=== PATIENT | female | born 1935 | race African-American/Black ===

== ENCOUNTER 2020-07-16 20:53 | Inpatient (IN) | payer BC, OTHER ==
--- NOTE | 2020-07-16 21:15 | PDOC ---
Attending Attestation - Resident Resident Name: MihirJefry - ED Attending Attestation I have performed the following: I have examined & evaluated the patient, The case was reviewed & discussed with the resident, I agree w/resident's findings & plan - HPI HPI: 07/17/20 06:02 Pt comes with facial droop. Here we see no droop. No other complaints - Physicial Exam PE: 07/17/20 06:02 07/17/20 06:02 Agree with resident exam 07/17/20 06:02 - Medical Decision Making 07/16/20 21:41 M.D. Please call [facility] [phone] ([phone]) with questions. Vicente Ponce MD Comments: Vicente Ponce MD wrote on Jul 16, 2020 at 09:22 PM: Referring Physician: PIETER BLISS Patient Name: EFRA MUHAMMAD THIS IS A PRELIMINARY REPORT FROM [facility] EXAM: CT head without contrast IMAGES: 279 DATE OF EXAM: 2020-07-16 21:04:51 REASON FOR EXAM: Stroke COMPARISON: None. FINDINGS: There is cerebral atrophy. Nonspecific bilateral basal ganglia calcifications, usually physiologic. Chronic microvascular ischemic changes are noted. No acute intracranial hemorrhage or acute infarction. The visualized aspect of the paranasal sinuses and mastoid air cells are remarkable for minimal mucosal thickening in the maxillary sinuses. No acute fracture. 07/17/20 00:12 Patient Name: EFRA MUHAMMAD THIS IS A PRELIMINARY REPORT FROM [facility] DATE OF SERVICE:2020-07-16 22:58:34 IMAGES: 530 EXAM: CT cervical spine without contrast HISTORY:FALL COMPARISON: None. FINDINGS: Moderate degenerative changes noted. Slight anterior subluxations at C4-C5 and C7-T1, likely due to degenerative changes. No acute cervical spine fracture or dislocation. Mild bilateral maxillary chronic sinus changes. 07/17 Pt will be admitted 06:02 Discharge - Discharge Information Problems reviewed: Yes Clinical Impression/Diagnosis: Slurred speech, Facial droop Hyperlipidemia Qualifiers: Hyperlipidemia type: unspecified Qualified Code(s): E78.5 - Hyperlipidemia, unspecified Hypertension Qualifiers: Hypertension type: unspecified Qualified Code(s): I10 - Essential (primary) hypertension Condition: Fair - Follow up/Referral - Patient Discharge Instructions - Post Discharge Activity
[2020-07-16] MEDS ORDERED: ASPIRIN 81 MG CHEWABLE TABLETS PO ONE (21:51)
[2020-07-16] MEDS ORDERED: ATORVASTATIN CA 80 MG TABLET (FP) PO ONE (21:52)
--- NOTE | 2020-07-16 21:58 | PDOC ---
History of Present Illness - General Chief Complaint: Facial Droop Stated Complaint: POSSIBLE STROKE Time Seen by Provider: 07/16/20 21:14 - History of Present Illness Initial Comments: 07/16/20 21:52 85yo F with PMH of HTN, GERD, dementia (AAOx3 at baseline), not ambulatory likely secondary to dementia, presents with right facial droop and slurred speech, noticed by daughter at 7pm. Unclear last known well, as son is reported to have noticed her abnormal speech this morning, and the daughter states patient sounded normal last night. Patient had one episode of NBNB emesis prior to arrival in ED. Daughter also reports that patient "passed out" and fell to the floor twice recently, once last month and once last weak. She was reportedly unconscious or minimally arousable for several minutes on the ground. No tongue biting or loss of urine. Denies neck pain. PMH: as above Meds: an ARB and PPI Allergies: none ROS GENERAL/CONSTITUTIONAL: No fever or chills. No weakness. HEAD, EYES, EARS, NOSE AND THROAT: No change in vision. No ear pain or discharge. No sore throat. CARDIOVASCULAR: No chest pain or shortness of breath RESPIRATORY: No cough, wheezing, or hemoptysis. GASTROINTESTINAL: No nausea, vomiting, diarrhea or constipation. GENITOURINARY: No dysuria, frequency, or change in urination. MUSCULOSKELETAL: chronic knee pain. No neck or back pain. SKIN: No rash NEUROLOGIC: No headache, vertigo, loss of consciousness, or change in strength/sensation. left facial droop and slurred speech ENDOCRINE: No increased thirst. No abnormal weight change HEMATOLOGIC/LYMPHATIC: No anemia, easy bleeding, or history of blood clots. ALLERGIC/IMMUNOLOGIC: No hives or skin allergy. PE GENERAL: Awake, alert, and fully oriented, in no acute distress HEAD: No signs of trauma, normocephalic, atraumatic. left facial droop, slurred speech as per daughter who is present EYES: PERRLA, EOMI, sclera anicteric, conjunctiva clear ENT: Auricles normal inspection, hearing grossly normal, nares patent, oropharynx clear without exudates. Moist mucosa NECK: Normal ROM, supple, no lymphadenopathy, JVD, or masses. no midline tenderness or obvious deformity LUNGS: No distress, speaks full sentences, clear to auscultation bilaterally HEART: Regular rate and rhythm, normal S1 and S2, no murmurs, rubs or gallops, peripheral pulses normal and equal bilaterally. ABDOMEN: Soft, nontender, normoactive bowel sounds. No guarding, no rebound. No masses EXTREMITIES : 2+ b/l LE pitting edema to the knees. pelvis stable. NEUROLOGICAL: Cranial nerves II through XII grossly intact. Normal speech, normal gait, no focal sensorimotor deficits SKIN: Warm, Dry, normal turgor, no rashes or lesions noted Vital Signs Temp Pulse Resp BP Pulse Ox 98.7 F 67 18 157/77 97 07/16/20 21:01 07/16/20 22:40 07/16/20 22:40 07/16/20 22:40 07/16/20 22:40 MDM: 85yo F with PMH of HTN, GERD, dementia (AAOx3 at baseline), not ambulatory likely secondary to dementia, presents with right facial droop and slurred speech, noticed by daughter at 7pm. Unclear last known well. DDx includes TIA vs. small vessel stroke vs. ICH. Also reports two episodes of falls with LOC. DDx includes syncope, seizure, ICH, cervical spine pathology. -CT head and c-spine -EKG, CXR, labs, admit -aspirin 243, atorvastatin 80, 1000ml NS 07/16/20 23:01 EKG: NSR, rate 61, normal axis and intervals, LVH, no ischemic changes CXR, CT head, and CT c-spine: negative for acute pathology labs: abnormal lipid panel Abnormal Lab Results 07/16/20 07/16/20 07/16/20 21:21 21:21 21:21 Eosinophils % 5.1 H Chloride 110 H Anion Gap 7 L Random Glucose 124 H Triglycerides 174 H Cholesterol 222 H Total LDL Cholesterol 129 H HDL Cholesterol 65 H Signed out to admitting attending who accepted the patient NIH Stroke Scale - Last Known Well Date/Time & Onset Date Last Known Well: 07/15/20 (unclear) Time Last Known Well: 20:00 (unclear) - Initial Evaluation Level of consciousness: Alert Ask patient the month and their age: Answers both correctly Ask patient to open & close eyes; make fist and let go: Obeys both correctly Best gaze (horizontal eye movement): Normal Visual field testing: No visual field loss Facial paresis (Show teeth/raise eyebrows/close eyes tight): Partial paralysis (total or near paralysis of lower face) Motor Function: Left Arm: Normal Motor Function: Right Arm: Normal (extends arm 90 (or 45) degrees for 10 seconds without drift Motor Function: Left Leg: Normal (extends leg 30 degrees for 5 seconds without drift) Motor Function: Right Leg: Normal (extends leg 30 degrees for 5 seconds without drift) Limb Ataxia: No ataxia Sensory(Use pinprick test arms,legs,trunk,face/side to side): Normal Best language (Describe picture, name items, read sentences): No Aphasia Dysarthria (read several words): Normal articulation Extinction and Inattention: No abnormality - Total Score NIH Stroke Scale Score: 2 Past History - Medical History Allergies/Adverse Reactions: Allergies Allergy/AdvReac Type Severity Reaction Status Date / Time No Known Allergies Allergy Verified 07/16/20 21:02 Home Medications: Ambulatory Orders Escitalopram Oxalate [Lexapro -] 5 mg PO DAILY 07/16/20 Olmesartan/Hydrochlorothiazide [Olmesartan-Hctz 40-12.5 mg Tab] 1 each PO DAILY 07/16/20 Omeprazole 40 mg PO DAILY 07/16/20 Anemia: No Asthma: No Cancer: No Cardiac Disorders: Yes CVA: No COPD: No CHF: No Dementia: No Diabetes: No GI Disorders: No Disorders: No HTN: Yes Hypercholesterolemia: No Liver Disease: No Seizures: No Thyroid Disease: No - Surgical History Abdominal Surgery: No Appendectomy: No Cardiac Surgery: No Cholecystectomy: No Lung Surgery: No Neurologic Surgery: No Orthopedic Surgery: No - Psycho-Social/Smoking History Smoking History: Never smoked Have you smoked in the past 12 months: No - Substance Abuse Hx (Audit-C & DAST Scrn) How often the patient has a drink containing alcohol: Never Score: In Men: 4 or > Positive; In Women: 3 or > Positive: 0 Screen Result (Pos requires Nsg. Audit-10AR): Negative In the last yr the pt used illegal drug/Rx for NonMed reason: No Score: Yes response is considered Positive: 0 Screen Result (Positive result requires Nsg. DAST-10): Negative *Physical Exam - Vital Signs Last Vital Signs Temp Pulse Resp BP Pulse Ox 98.7 F 76 18 173/73 H 97 07/16/20 21:01 07/16/20 21:01 07/16/20 21:01 07/16/20 21:01 07/16/20 21:01 ED Treatment Course - LABORATORY CBC & Chemistry Diagram: 07/16/20 21:21 07/16/20 21:21 Discharge - Discharge Information Problems reviewed: Yes Clinical Impression/Diagnosis: Slurred speech, Facial droop Hyperlipidemia Qualifiers: Hyperlipidemia type: unspecified Qualified Code(s): E78.5 - Hyperlipidemia, unspecified Hypertension Qualifiers: Hypertension type: unspecified Qualified Code(s): I10 - Essential (primary) hypertension Condition: Fair - Follow up/Referral - Patient Discharge Instructions - Post Discharge Activity
[2020-07-16 22:12] LABS: BASO % 0.5 % (0-2.0); EOS % 5.1 % (0-4.5); HEMOGLOBIN 12.6 GM/dL (10.7-15.3); LYMPH % 25.6 % (8-40); MCH 30.6 pg (25.7-33.7); MCHC 33.3 g/dl (32.0-36.0); MEAN PLT VOLUME 8.9 fl (7.5-11.1); MONO % 7.5 % (3.8-10.2); NEUT % 61.3 % (42.8-82.8); PLATELET COUNT 303 K/MM3 (134-434); RBC 4.13 M/mm3 (3.60-5.2); RDW 14.4 % (11.6-15.6); WHITE BLOOD COUNT 6.5 K/mm3 (4.0-10.0)
[2020-07-16 22:21] LABS: INR 1.03 (0.83-1.09); PROTHROMBIN TIME (PATIENT) 12.1 SEC (9.7-13.0)
[2020-07-16] MEDS: SODIUM CHLORIDE 1,000 ML IV SCH (22:22)
[2020-07-16 22:23] LABS: ACTIVATED PTT 26.1 SECONDS (25.2-36.5)
[2020-07-16] MEDS ORDERED: ATORVASTATIN CA 80 MG TABLET (FP) ONE (22:25)
[2020-07-16] MEDS ORDERED: ASPIRIN 81 MG CHEWABLE TABLETS ONE (22:25)
[2020-07-16 22:42] LABS: CHOLESTEROL 222 mg/dL (50-200); HDL CHOLESTEROL 65 mg/dL (40-60); LDL CHOLESTEROL (ONLY SJRH) 129 mg/dL (5-100); TRIGLYCERIDES 174 mg/dL (0-150)
[2020-07-16 22:43] LABS: ALBUMIN 3.4 g/dl (3.4-5.0); ALK PHOS 82 U/L (45-117); ANION GAP 7 MMOL/L (8-16); BILIRUBIN,TOTAL 0.5 mg/dL (0.2-1); BLOOD UREA NITROGEN 17.2 mg/dL (7-18); CALCIUM 8.8 mg/dL (8.5-10.1); CHLORIDE 110 mmol/L (98-107); CO2 25 mmol/L (21-32); CREATININE 1.2 mg/dL (0.55-1.3); GLUCOSE,RANDOM 124 mg/dL (74-106); SGOT/AST 20 U/L (15-37); SGPT/ALT 22 U/L (13-61); SODIUM 142 mmol/L (136-145); TOT PROT 7.1 g/dl (6.4-8.2)
--- NOTE | 2020-07-17 08:43 | CON.CARD ---
Consult Consult Specialty:: Cardiology - History of Present Illness History of Present Illness: 85yo F with PMH of HTN, GERD, dementia (AAOx3 at baseline), not ambulatory likely secondary to dementia, presents with right facial droop and slurred speech, noticed by daughter at 7pm. Unclear last known well, as son is reported to have noticed her abnormal speech this morning, and the daughter states patien t sounded normal last night. Patient had one episode of NBNB emesis prior to arrival in ED. Daughter also reports that patient "passed out" and fell to the floor twice recently, once last month and once last weak. She was reportedly unconscious or minimally arousable for several minutes on the ground. No tongue biting or loss of urine. Denies neck pain. - History Source History Provided By: Patient, Medical Record - Alcohol/Substance Use Hx Alcohol Use: No - Smoking History Smoking history: Never smoked Have you smoked in the past 12 months: No Home Medications - Allergies Allergies/Adverse Reactions: Allergies Allergy/AdvReac Type Severity Reaction Status Date / Time No Known Allergies Allergy Verified 07/16/20 21:02 - Home Medications Home Medications: Ambulatory Orders Escitalopram Oxalate [Lexapro -] 5 mg PO DAILY 07/16/20 Olmesartan/Hydrochlorothiazide [Olmesartan-Hctz 40-12.5 mg Tab] 1 each PO DAILY 07/16/20 Omeprazole 40 mg PO DAILY 07/16/20 Review of Systems - Review of Systems Constitutional: reports: No Symptoms Eyes: reports: No Symptoms HENT: reports: No Symptoms Neck: reports: No Symptoms Cardiovascular: reports: No Symptoms Gastrointestinal: reports: No Symptoms Genitourinary: reports: No Symptoms Breasts: reports: No Symptoms Reported Musculoskeletal: reports: No Symptoms Integumentary: reports: No Symptoms Neurological: reports: Change in Speech Endocrine: reports: No Symptoms Hematology/Lymphatic: reports: No Symptoms Psychiatric: reports: No Symptoms Vital Signs: Vital Signs Temperature 98.5 F 07/17/20 02:02 Pulse Rate 56 L 07/17/20 06:52 Respiratory Rate 18 07/17/20 06:52 Blood Pressure 181/74 H 07/17/20 06:52 O2 Sat by Pulse Oximetry (%) 97 07/17/20 06:52 Constitutional: Yes: Well Nourished, No Distress, Calm Eyes: Yes: WNL, Conjunctiva Clear, EOM Intact HENT: Yes: WNL, Atraumatic, Normocephalic Neck: Yes: WNL, Supple, Trachea Midline Respiratory: Yes: WNL, Regular, CTA Bilaterally Gastrointestinal: Yes: WNL, Normal Bowel Sounds Renal/: Yes: WNL Cardiovascular: Yes: WNL, Regular Rate and Rhythm Musculoskeletal: Yes: WNL Extremities: Yes: WNL Integumentary: Yes: WNL - Other Data Labs, Other Data: CBC, BMP 07/16/20 21:21 07/16/20 21:21 INR, PTT INR 1.03 (0.83-1.09) 07/16/20 21:21 Troponin, BNP 07/16/20 21:21 Troponin I < 0.02 Troponin, BNP 07/16/20 21:21 Troponin I < 0.02 Imaging - Results Chest X-ray: Image Reviewed (no i/e) EKG: Image Reviewed (nsr lvh) Problem List - Problems (1) Facial droop Code(s): R29.810 - FACIAL WEAKNESS (2) Hyperlipidemia Code(s): E78.5 - HYPERLIPIDEMIA, UNSPECIFIED Qualifiers: Hyperlipidemia type: unspecified Qualified Code(s): E78.5 - Hyperlipidemia, unspecified (3) Hypertension Code(s): I10 - ESSENTIAL (PRIMARY) HYPERTENSION Qualifiers: Hypertension type: unspecified Qualified Code(s): I10 - Essential (primary) hypertension (4) Slurred speech Code(s): R47.81 - SLURRED SPEECH Assessment/Plan 85yo F with PMH of HTN, GERD, dementia (AAOx3 at baseline), not ambulatory likely secondary to dementia, presents with right facial droop and slurred speech, noticed by daughter at 7pm. TIA Plan; Neurology eval serial EKGs c.duplex ECHO DVT PLX
[2020-07-17] MEDS ORDERED: ASPIRIN COATED 81 MG TABLET.EC ONE (09:46)
[2020-07-17] MEDS ORDERED: PANTOPRAZOLE 40 MG TABLET ONE (09:47)
[2020-07-17] MEDS ORDERED: ESCITALOPRAM OXALATE 10 MG TABLET ONE (09:47)
[2020-07-17] MEDS ORDERED: amLODIPine BESYLATE 5 MG TABLET (FP) ONE (09:47)
[2020-07-17] MEDS ORDERED: HEPARIN NA (PORCINE) 5,000 UNITS/ML 1ML VIAL ONE (09:48)
[2020-07-17] MEDS: ASPIRIN COATED 81 MG TABLET.EC PO SCH (10:32)
[2020-07-17] MEDS: ESCITALOPRAM OXALATE 10 MG TABLET PO SCH (10:32)
[2020-07-17] MEDS: PANTOPRAZOLE 40 MG TABLET PO SCH (10:32)
[2020-07-17] MEDS: HEPARIN NA (PORCINE) 5,000 UNITS/ML 1ML VIAL SQ SCH ×2 (10:32→22:57)
[2020-07-17] MEDS: amLODIPine BESYLATE 5 MG TABLET (FP) PO SCH (10:32)
--- NOTE | 2020-07-17 15:08 | EKG ---
Test Reason : Blood Pressure : / mmHG Vent. Rate : 061 BPM Atrial Rate : 061 BPM P-R Int : 158 ms QRS Dur : 082 ms QT Int : 420 ms P-R-T Axes : 025 021 002 degrees QTc Int : 422 ms NORMAL SINUS RHYTHM VOLTAGE CRITERIA FOR LEFT VENTRICULAR HYPERTROPHY ABNORMAL ECG NO PREVIOUS ECGS AVAILABLE Confirmed by MD Abhay, Adithya ([id number]) on 07/17/2020 3:08:08 PM Referred By: Confirmed By:Adithya Blank MD
--- NOTE | 2020-07-17 21:50 | HP ---
Admitting History and Physical - Smoking History Smoking history: Never smoked Have you smoked in the past 12 months: No - Alcohol/Substance Use Hx Alcohol Use: No Home Medications - Allergies Allergies/Adverse Reactions: Allergies Allergy/AdvReac Type Severity Reaction Status Date / Time No Known Allergies Allergy Verified 07/16/20 21:02 - Home Medications Home Medications: Ambulatory Orders Escitalopram Oxalate [Lexapro -] 5 mg PO DAILY 07/16/20 Olmesartan/Hydrochlorothiazide [Olmesartan-Hctz 40-12.5 mg Tab] 1 each PO DAILY 07/16/20 Omeprazole 40 mg PO DAILY 07/16/20 Physical Examination Vital Signs: Vital Signs Temperature 98.5 F 07/17/20 02:02 Pulse Rate 67 07/17/20 18:00 Respiratory Rate 17 07/17/20 18:00 Blood Pressure 169/62 07/17/20 18:00 O2 Sat by Pulse Oximetry (%) 96 07/17/20 18:00 Labs: CBC, BMP 07/16/20 21:21 07/16/20 21:21 Problem List - Problems (1) CVA (cerebral vascular accident) Code(s): I63.9 - CEREBRAL INFARCTION, UNSPECIFIED (2) Dementia Code(s): F03.90 - UNSPECIFIED DEMENTIA WITHOUT BEHAVIORAL DISTURBANCE (3) Hyperlipidemia Code(s): E78.5 - HYPERLIPIDEMIA, UNSPECIFIED Qualifiers: Hyperlipidemia type: unspecified Qualified Code(s): E78.5 - Hyperlipidemia, unspecified (4) Hypertension Code(s): I10 - ESSENTIAL (PRIMARY) HYPERTENSION Qualifiers: Hypertension type: unspecified Qualified Code(s): I10 - Essential (primary) hypertension
[2020-07-17] MEDS: SODIUM CHLORIDE 1,000 ML IV SCH (22:37)
[2020-07-17] MEDS: ATORVASTATIN CA 40 MG TABLET (FP) PO SCH (22:58)
[2020-07-17] MEDS: ACETAMINOPHEN 325 MG TABLET (FP) PO PRN (23:08)
[2020-07-18 05:35] VITALS: BMI 31.8
--- NOTE | 2020-07-18 09:13 | PN ---
Progress Note, Physician History of Present Illness: 85yo F with PMH of HTN, GERD, dementia (AAOx3 at baseline), not ambulatory likely secondary to dementia, presents with right facial droop and slurred speech, noticed by daughter at 7pm. Unclear last known well, as son is reported to have noticed her abnormal speech this morning, and the daughter states patient sounded normal last night. Patient had one episode of NBNB emesis prior to arrival in ED. Daughter also reports that patient "passed out" and fell to the floor twice recently, once last month and once last weak. She was reportedly unconscious or minimally arousable for several minutes on the ground. No tongue biting or loss of urine. Denies neck pain. - Current Medication List Current Medications: Active Medications Acetaminophen (Tylenol -) 650 mg PO Q6H PRN PRN Reason: PAIN LEVEL 1-6 Last Admin: 07/17/20 23:08 Dose: 650 mg Documented by: Amlodipine Besylate (Norvasc -) 5 mg PO DAILY [facility] Last Admin: 07/17/20 10:32 Dose: 5 mg Documented by: Aspirin (Ecotrin -) 81 mg PO DAILY [facility] Last Admin: 07/17/20 10:32 Dose: 81 mg Documented by: Atorvastatin Calcium (Lipitor -) 40 mg PO HS [facility] Last Admin: 07/17/20 22:58 Dose: 40 mg Documented by: Escitalopram Oxalate (Lexapro -) 5 mg PO DAILY [facility] Last Admin: 07/17/20 10:32 Dose: 5 mg Documented by: Heparin Sodium (Porcine) (Heparin -) 5,000 unit SQ BID [facility] Last Admin: 07/17/20 22:57 Dose: 5,000 unit Documented by: Pantoprazole Sodium (Protonix -) 40 mg PO DAILY [facility] Last Admin: 07/17/20 10:32 Dose: 40 mg Documented by: - Objective Vital Signs: Vital Signs Temperature 97.9 F 07/18/20 06:00 Pulse Rate 60 07/18/20 06:00 Respiratory Rate 18 07/18/20 06:00 Blood Pressure 154/76 07/18/20 06:00 O2 Sat by Pulse Oximetry (%) 97 07/18/20 06:00 Eyes: Yes: WNL, Conjunctiva Clear, EOM Intact HENT: Yes: WNL, Atraumatic, Normocephalic Neck: Yes: WNL, Supple, Trachea Midline Cardiovascular: Yes: WNL, Regular Rate and Rhythm Respiratory: Yes: WNL, Regular, CTA Bilaterally Gastrointestinal: Yes: WNL, Normal Bowel Sounds Genitourinary: Yes: WNL Musculoskeletal: Yes: WNL Extremities: Yes: WNL Edema: No Integumentary: Yes: WNL Neurological: Yes: WNL, Alert, Oriented ...Motor Strength: WNL Psychiatric: Yes: WNL Labs: CBC, BMP 07/16/20 21:21 07/16/20 21:21 INR, PTT INR 1.03 (0.83-1.09) 07/16/20 21:21 Problem List - Problems (1) Facial droop Code(s): R29.810 - FACIAL WEAKNESS (2) Hyperlipidemia Code(s): E78.5 - HYPERLIPIDEMIA, UNSPECIFIED Qualifiers: Hyperlipidemia type: unspecified Qualified Code(s): E78.5 - Hyperlipidemia, unspecified (3) Hypertension Code(s): I10 - ESSENTIAL (PRIMARY) HYPERTENSION Qualifiers: Hypertension type: unspecified Qualified Code(s): I10 - Essential (primary) hypertension (4) Slurred speech Code(s): R47.81 - SLURRED SPEECH Assessment/Plan 85yo F with PMH of HTN, GERD, dementia (AAOx3 at baseline), not ambulatory likely secondary to dementia, presents with right facial droop and slurred speech, noticed by daughter at 7pm. TIA Plan; Neurology eval serial EKGs c.duplex ECHO DVT PLX
[2020-07-18] MEDS: ESCITALOPRAM OXALATE 10 MG TABLET PO SCH (10:41)
[2020-07-18] MEDS: PANTOPRAZOLE 40 MG TABLET PO SCH (10:44)
[2020-07-18] MEDS: ASPIRIN COATED 81 MG TABLET.EC PO SCH (10:45)
[2020-07-18] MEDS: amLODIPine BESYLATE 5 MG TABLET (FP) PO SCH (10:45)
[2020-07-18] MEDS: HEPARIN NA (PORCINE) 5,000 UNITS/ML 1ML VIAL SQ SCH ×2 (10:45→21:28)
[2020-07-18 12:00] LABS: BASO % 0.8 % (0-2.0); EOS % 5.7 % (0-4.5); HEMATOCRIT 39.2 % (32.4-45.2); HEMOGLOBIN 13.4 GM/dL (10.7-15.3); LYMPH % 29.4 % (8-40); MCH 31.5 pg (25.7-33.7); MCHC 34.2 g/dl (32.0-36.0); MEAN CELL VOLUME 92.1 fl (80-96); MEAN PLT VOLUME 8.6 fl (7.5-11.1); MONO % 7.4 % (3.8-10.2); NEUT % 56.7 % (42.8-82.8); PLATELET COUNT 286 K/MM3 (134-434); RBC 4.25 M/mm3 (3.60-5.2); WHITE BLOOD COUNT 4.5 K/mm3 (4.0-10.0)
[2020-07-18 12:33] LABS: ALBUMIN 3.4 g/dl (3.4-5.0); BILIRUBIN,TOTAL 0.7 mg/dL (0.2-1); BLOOD UREA NITROGEN 12.7 mg/dL (7-18); POTASSIUM 3.7 mmol/L (3.5-5.1)
--- NOTE | 2020-07-18 19:40 | PN ---
Progress Note, Physician - Current Medication List Current Medications: Active Medications Acetaminophen (Tylenol -) 650 mg PO Q6H PRN PRN Reason: PAIN LEVEL 1-6 Last Admin: 07/17/20 23:08 Dose: 650 mg Documented by: Amlodipine Besylate (Norvasc -) 5 mg PO DAILY [facility] Last Admin: 07/18/20 10:45 Dose: 5 mg Documented by: Aspirin (Ecotrin -) 81 mg PO DAILY [facility] Last Admin: 07/18/20 10:45 Dose: 81 mg Documented by: Atorvastatin Calcium (Lipitor -) 40 mg PO HS [facility] Last Admin: 07/17/20 22:58 Dose: 40 mg Documented by: Escitalopram Oxalate (Lexapro -) 5 mg PO DAILY [facility] Last Admin: 07/18/20 10:41 Dose: 5 mg Documented by: Heparin Sodium (Porcine) (Heparin -) 5,000 unit SQ BID [facility] Last Admin: 07/18/20 10:45 Dose: 5,000 unit Documented by: Pantoprazole Sodium (Protonix -) 40 mg PO DAILY [facility] Last Admin: 07/18/20 10:44 Dose: 40 mg Documented by: - Objective Vital Signs: Vital Signs Temperature 98.3 F 07/18/20 14:15 Pulse Rate 66 07/18/20 14:15 Respiratory Rate 20 07/18/20 14:15 Blood Pressure 149/77 07/18/20 14:15 O2 Sat by Pulse Oximetry (%) 98 07/18/20 14:15 Constitutional: Yes: Calm HENT: Yes: Atraumatic Neck: Yes: Supple Cardiovascular: Yes: Regular Rate and Rhythm Respiratory: Yes: Rhonchi Gastrointestinal: Yes: Normal Bowel Sounds Extremities: Yes: WNL Labs: CBC, BMP 07/18/20 11:25 07/18/20 11:25 INR, PTT INR 1.03 (0.83-1.09) 07/16/20 21:21 Problem List - Problems (1) CVA (cerebral vascular accident) Assessment/Plan: mri noted awaiting neuro consult Code(s): I63.9 - CEREBRAL INFARCTION, UNSPECIFIED (2) Dementia Code(s): F03.90 - UNSPECIFIED DEMENTIA WITHOUT BEHAVIORAL DISTURBANCE (3) Facial droop Code(s): R29.810 - FACIAL WEAKNESS (4) Hyperlipidemia Assessment/Plan: on meds Code(s): E78.5 - HYPERLIPIDEMIA, UNSPECIFIED Qualifiers: Hyperlipidemia type: unspecified Qualified Code(s): E78.5 - Hyperlipidemia, unspecified (5) Hypertension Assessment/Plan: on meds Code(s): I10 - ESSENTIAL (PRIMARY) HYPERTENSION Qualifiers: Hypertension type: unspecified Qualified Code(s): I10 - Essential (primary) hypertension (6) Slurred speech Code(s): R47.81 - SLURRED SPEECH Assessment/Plan COVERING FOR DR EMMA ORTIZ
[2020-07-18] MEDS: ATORVASTATIN CA 40 MG TABLET (FP) PO SCH (21:28)
[2020-07-18] MEDS: ACETAMINOPHEN 325 MG TABLET (FP) PO PRN (21:29)
[2020-07-18] MEDS ORDERED: amLODIPine BESYLATE 2.5 MG TABLET (FP) PO ONE (22:45)
--- NOTE | 2020-07-19 07:21 | ECHO ---
Version: 1 Name: EFRA MUHAMMAD Exam: Adult Echocardiogram Study Date: 07/18/2020, 9:18 AM Age: 85 Years MMode/2D Measurements & Calculations IVSd: 1.10 cm LVIDs: 3.1 cm LVIDd: 4.4 cm LVPWd: 1.10 cm LAV (MOD-bp): 69.8 ml LVOT diam: 2.03 cm Ao root diam: 3.1 cm LA dimension: 2.9 cm Doppler Measurements & Calculations MV E max jose: 71.7 cm/sec Med E/e': 15.6 MV A max jose: 101.7 cm/sec Med Peak E' Jose: 4.6 cm/sec MV E/A: 0.70 Lat E/e': 10.7 Lat Peak E' Jose: 6.7 cm/sec Ao max P.8 mmHg Ao V2 max: 192.4 cm/sec Procedure A complete two-dimensional transthoracic echocardiogram was performed (2D, M-mode, Doppler and color flow Doppler). Technically limited study. Left Ventricle The left ventricle is normal in size. Left ventricular systolic function is normal. Ejection Fractio n = 60- 65%. LV diastology suggests impaired relaxation with elevated filling pressure (E/e' 16). No regiona l wall motion abnormalities noted. Right Ventricle The right ventricle is not well visualized. Atria The left atrial size is normal. Right atrial size is normal. Mitral Valve The mitral valve leaflets appear normal. There is no evidence of stenosis, fluttering, or prolapse. There is trace mitral regurgitation. Tricuspid Valve The tricuspid valve is not well visualized, but is grossly normal. There is mild tricuspid regurgita tion. Aortic Valve There is mild aortic sclerosis.;. No aortic regurgitation is present. Pulmonic Valve The pulmonic valve is not well seen, but is grossly normal. Mild pulmonic valvular regurgitation. Great Vessels The aortic root is normal size. Pericardium/Pleura There is no pericardial effusion. Summary Statements The left ventricle is normal in size. Left ventricular systolic function is normal. LV diastology suggests impaired relaxation with elevated filling pressure (E/e' 16) No regional wall motion abnormalities noted. Ejection Fraction = 60-65%. There is trace mitral regurgitation. There is mild tricuspid regurgitation. There is mild aortic sclerosis. Mild pulmonic valvular regurgitation. There is no pericardial effusion. Kiko Goldsmith MD 07/18/2020, 10:08 AM Ordering Physician: Christie Brewer Performed By: Yesica Bills
[2020-07-19] MEDS: PANTOPRAZOLE 40 MG TABLET PO SCH (09:10)
[2020-07-19] MEDS: ESCITALOPRAM OXALATE 10 MG TABLET PO SCH (09:10)
[2020-07-19] MEDS: amLODIPine BESYLATE 5 MG TABLET (FP) PO SCH (09:10)
[2020-07-19] MEDS: ASPIRIN COATED 81 MG TABLET.EC PO SCH (09:10)
[2020-07-19] MEDS: HEPARIN NA (PORCINE) 5,000 UNITS/ML 1ML VIAL SQ SCH ×2 (09:11→21:32)
--- NOTE | 2020-07-19 13:42 | PN ---
Progress Note, Physician Chief Complaint: Pt A History of Present Illness: 85yo F with PMH of HTN, GERD, dementia (AAOx2 at baseline), not ambulatory likely secondary to dementia, presents with right facial droop and slurred speech, noticed by daughter at 7pm. Unclear last known well, as son is reported to have noticed her abnormal speech this morning, and the daughter states patient sounded normal last night. Patient had one episode of NBNB emesis prior to arrival in ED. Daughter also reports that patient "passed out" and fell to the floor twice recently, once last month and once last weak. She was reportedly unconscious or minimally arousable for several minutes on the ground. No tongue biting or loss of urine. Denies neck pain. - Current Medication List Current Medications: Active Medications Acetaminophen (Tylenol -) 650 mg PO Q6H PRN PRN Reason: PAIN LEVEL 1-6 Last Admin: 07/18/20 21:29 Dose: 650 mg Documented by: Amlodipine Besylate (Norvasc -) 5 mg PO DAILY [facility] Last Admin: 07/19/20 09:10 Dose: 5 mg Documented by: Aspirin (Ecotrin -) 81 mg PO DAILY [facility] Last Admin: 07/19/20 09:10 Dose: 81 mg Documented by: Atorvastatin Calcium (Lipitor -) 40 mg PO HS [facility] Last Admin: 07/18/20 21:28 Dose: 40 mg Documented by: Escitalopram Oxalate (Lexapro -) 5 mg PO DAILY [facility] Last Admin: 07/19/20 09:10 Dose: 5 mg Documented by: Heparin Sodium (Porcine) (Heparin -) 5,000 unit SQ BID [facility] Last Admin: 07/19/20 09:11 Dose: 5,000 unit Documented by: Pantoprazole Sodium (Protonix -) 40 mg PO DAILY [facility] Last Admin: 07/19/20 09:10 Dose: 40 mg Documented by: - Objective Vital Signs: Vital Signs Temperature 97.8 F 07/19/20 08:33 Pulse Rate 57 L 07/19/20 08:33 Respiratory Rate 19 07/19/20 08:33 Blood Pressure 140/77 07/19/20 08:33 O2 Sat by Pulse Oximetry (%) 99 07/19/20 08:34 Labs: CBC, BMP 07/18/20 11:25 07/18/20 11:25 INR, PTT INR 1.03 (0.83-1.09) 07/16/20 21:21 Assessment/Plan 85yo F with PMH of HTN, GERD, dementia (AAOx3 at baseline), not ambulatory likely secondary to dementia, presents with right facial droop and slurred speech, noticed by daughter at 7pm. 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 On ASA 81 mg daily. EKG: NSR; LVH; f/u today. Statin; keep LDL cholesterol < 70 mg/dL TSH HGBA1c. DVT PLX
--- NOTE | 2020-07-19 19:25 | CONSULT ---
Consult - text type - Consultation Consultation Note: NEUROLOGY CONSULTATION is greatly appreciated: Events reviewed and discussed with RN. Patient examined. This 85 yo RH woman lives alone with her son downstairs. PMH sig for: HTN, Chol, Depression, and GERD. Maintained on: amlodipine (5 mg); atorvastatin, ASA, pantoprazole, escitalopram. Chronic difficulty with walking. Has required walker x "few years" and unable to walk up/down her stairs for "some time." "Afraid of falling." Now admitted with slurred speech and "facial droop." MRI of brain (reviewed): Moderate, diffuse atrophy with diffuse microvascular changes and an acute/subacute Right internal capsulelacunar infarct with faint DWI hyperintensity. Duplex doppler/MRI: No large vessel stenoses. Tiny PComm aneursysm. MELVA: No bruits. Cor reg. No head trauma. BP's up to 190 systolic documented. NEURO: Awake, alert, cooperative. [facility], 2019. Trump. Recalls 2 of 3 at 3. No frontal release Speech fluent. CN: Full fischer and EOM's. No facial. Gag OK Motor: Min Right drift. Sl. decreased TERESO's. normal reflexes except reduced AJ's. Toes downgoing Coord: No FTN dystaxia. Sensory: Decreased vib feet. Gait: Stands with assist only. Frozen . Retropulsive. IMP: Mild OMS, and moderate, B/L motor signs c/w diffuse hypertensive microvascular disease. Doing well after right internal capsule lacunar infarct. SUGGEST: Control systolic BP into the 130 range. Check U/A, C & S Check B12, TSH, RPR. PT for gait with walker -> short term rehab. 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 Thank you very much, Vicente Nicole MD
[2020-07-19] MEDS: ATORVASTATIN CA 40 MG TABLET (FP) PO SCH (21:33)
[2020-07-19 22:07] LABS: PH,URINE 5.5 (5.0-8.0); URINE APPEARANCE CLEAR; URINE BILIRUBIN NEGATIVE (NEGATIVE); URINE COLOR YELLOW; URINE GLUCOSE (UA) NEGATIVE (NEGATIVE); URINE KETONE NEGATIVE (NEGATIVE); URINE LEUK ESTERASE NEGATIVE (NEGATIVE); URINE NITRITE NEGATIVE (NEGATIVE); URINE PROTEIN NEGATIVE (NEGATIVE)
[2020-07-20 07:29] LABS: BASO % 0.7 % (0-2.0); EOS % 6.4 % (0-4.5); HEMOGLOBIN 11.8 GM/dL (10.7-15.3); LYMPH % 31.7 % (8-40); MCHC 33.6 g/dl (32.0-36.0); MEAN CELL VOLUME 92.2 fl (80-96); MEAN PLT VOLUME 8.8 fl (7.5-11.1); NEUT % 52.2 % (42.8-82.8); PLATELET COUNT 266 K/MM3 (134-434); RDW 14.1 % (11.6-15.6)
[2020-07-20 08:07] LABS: ALBUMIN 2.9 g/dl (3.4-5.0); BILIRUBIN,TOTAL 0.7 mg/dL (0.2-1); BLOOD UREA NITROGEN 16.7 mg/dL (7-18); POTASSIUM 3.7 mmol/L (3.5-5.1); TOT PROT 6.3 g/dl (6.4-8.2)
[2020-07-20] MEDS ORDERED: PT OWN MED DRAWER 7, Y5N ONE (09:55)
[2020-07-20] MEDS: ESCITALOPRAM OXALATE 10 MG TABLET PO SCH (09:58)
[2020-07-20] MEDS: HEPARIN NA (PORCINE) 5,000 UNITS/ML 1ML VIAL SQ SCH ×2 (09:58→21:45)
[2020-07-20] MEDS: amLODIPine BESYLATE 5 MG TABLET (FP) PO SCH (09:58)
[2020-07-20] MEDS: PANTOPRAZOLE 40 MG TABLET PO SCH (09:58)
[2020-07-20] MEDS: ASPIRIN COATED 81 MG TABLET.EC PO SCH (09:58)
--- NOTE | 2020-07-20 10:55 | CON.ID ---
Consult Consult Specialty:: infectious diseases - Past Medical History ...: No - Alcohol/Substance Use Hx Alcohol Use: No - Smoking History Smoking history: Never smoked Have you smoked in the past 12 months: No Home Medications - Allergies Allergies/Adverse Reactions: Allergies Allergy/AdvReac Type Severity Reaction Status Date / Time No Known Allergies Allergy Verified 07/16/20 21:02 - Home Medications Home Medications: Ambulatory Orders Escitalopram Oxalate [Lexapro -] 5 mg PO DAILY 07/16/20 Olmesartan/Hydrochlorothiazide [Olmesartan-Hctz 40-12.5 mg Tab] 1 each PO DAILY 07/16/20 Omeprazole 40 mg PO DAILY 07/16/20 Acetaminophen [Tylenol Arthritis] 650 mg PO DAILY PRN 07/18/20 Aspirin [Ecotrin] 81 mg PO 07/18/20 Cholecalciferol (Vitamin D3) [Vitamin D3 -] 1,000 unit PO DAILY 07/18/20 Ferrous Sulfate [Iron] 325 mg PO 07/18/20 Gentry-3 Fatty Acids [Gentry-3] 1 cap PO DAILY 07/18/20 Physical Exam Vital Signs: Vital Signs Temperature 98.1 F 07/20/20 07:01 Pulse Rate 65 07/20/20 07:01 Respiratory Rate 18 07/20/20 07:01 Blood Pressure 146/77 07/20/20 07:01 O2 Sat by Pulse Oximetry (%) 98 07/20/20 07:01 Labs: CBC, BMP 07/20/20 06:18 07/20/20 06:18
[2020-07-20] MEDS ORDERED: CEFTRIAXONE 1 GM in DEXTROSE 5%-WATER - 50 ML IVPB SCH (11:00)
--- NOTE | 2020-07-20 11:06 | EKG ---
Test Reason : Blood Pressure : / mmHG Vent. Rate : 068 BPM Atrial Rate : 068 BPM P-R Int : 142 ms QRS Dur : 084 ms QT Int : 386 ms P-R-T Axes : -20 007 -03 degrees QTc Int : 410 ms NORMAL SINUS RHYTHM VOLTAGE CRITERIA FOR LEFT VENTRICULAR HYPERTROPHY NONSPECIFIC T WAVE ABNORMALITY ABNORMAL ECG WHEN COMPARED WITH ECG OF 16-JUL-2020 22:03, NO SIGNIFICANT CHANGE WAS FOUND Confirmed by MD Rosalie, Keanu ([id number]) on 07/20/2020 11:05:25 AM Referred By: BRITTNEY BARBA Confirmed By:Keanu Wiggins MD
--- NOTE | 2020-07-20 11:17 | PN ---
Progress Note, Physician History of Present Illness: 85yo F with PMH of HTN, GERD, dementia (AAOx3 at baseline), not ambulatory likely secondary to dementia, presents with right facial droop and slurred speech, noticed by daughter at 7pm. Unclear last known well, as son is reported to have noticed her abnormal speech this morning, and the daughter states patient sounded normal last night. Patient had one episode of NBNB emesis prior to arrival in ED. Daughter also reports that patient "passed out" and fell to the floor twice recently, once last month and once last weak. She was reportedly unconscious or minimally arousable for several minutes on the ground. No tongue biting or loss of urine. Denies neck pain. - Current Medication List Current Medications: Active Medications Acetaminophen (Tylenol -) 650 mg PO Q6H PRN PRN Reason: PAIN LEVEL 1-6 Last Admin: 07/18/20 21:29 Dose: 650 mg Documented by: Amlodipine Besylate (Norvasc -) 5 mg PO DAILY [facility] Last Admin: 07/20/20 09:58 Dose: 5 mg Documented by: Aspirin (Ecotrin -) 81 mg PO DAILY [facility] Last Admin: 07/20/20 09:58 Dose: 81 mg Documented by: Atorvastatin Calcium (Lipitor -) 40 mg PO HS [facility] Last Admin: 07/19/20 21:33 Dose: 40 mg Documented by: Escitalopram Oxalate (Lexapro -) 5 mg PO DAILY [facility] Last Admin: 07/20/20 09:58 Dose: 5 mg Documented by: Heparin Sodium (Porcine) (Heparin -) 5,000 unit SQ BID [facility] Last Admin: 07/20/20 09:58 Dose: 5,000 unit Documented by: Ceftriaxone Sodium 1 gm/ (Dextrose) 50 mls @ 100 mls/hr IVPB DAILY [facility]; Protocol Pantoprazole Sodium (Protonix -) 40 mg PO DAILY [facility] Last Admin: 07/20/20 09:58 Dose: 40 mg Documented by: - Objective Vital Signs: Vital Signs Temperature 98.1 F 07/20/20 07:01 Pulse Rate 65 07/20/20 07:01 Respiratory Rate 18 07/20/20 07:01 Blood Pressure 146/77 07/20/20 07:01 O2 Sat by Pulse Oximetry (%) 98 07/20/20 07:01 Eyes: Yes: WNL, Conjunctiva Clear, EOM Intact HENT: Yes: WNL, Atraumatic, Normocephalic Neck: Yes: WNL, Supple, Trachea Midline Cardiovascular: Yes: WNL, Regular Rate and Rhythm Respiratory: Yes: WNL, Regular, CTA Bilaterally Gastrointestinal: Yes: WNL, Normal Bowel Sounds Genitourinary: Yes: WNL Musculoskeletal: Yes: WNL Extremities: Yes: WNL Edema: No Integumentary: Yes: WNL Labs: CBC, BMP 07/20/20 06:18 07/20/20 06:18 INR, PTT INR 1.03 (0.83-1.09) 07/16/20 21:21 Problem List - Problems (1) Facial droop Code(s): R29.810 - FACIAL WEAKNESS (2) Hyperlipidemia Code(s): E78.5 - HYPERLIPIDEMIA, UNSPECIFIED Qualifiers: Hyperlipidemia type: unspecified Qualified Code(s): E78.5 - Hyperlipidemia, unspecified (3) Hypertension Code(s): I10 - ESSENTIAL (PRIMARY) HYPERTENSION Qualifiers: Hypertension type: unspecified Qualified Code(s): I10 - Essential (primary) hypertension (4) Slurred speech Code(s): R47.81 - SLURRED SPEECH Assessment/Plan 85yo F with PMH of HTN, GERD, dementia (AAOx3 at baseline), not ambulatory likely secondary to dementia, presents with right facial droop and slurred speech, noticed by daughter at 7pm. CVA: acute infarct Carotid artery anerurysm Diastolic CHF ECHO nl EF Plan: Neurology evaluation (Cerebral infarct; carotid artery aneurysm); comment on BP parameters (presently on amlodipine). On ASA 81 mg daily. EKG: NSR; LVH; f/u today. Statin; keep LDL cholesterol < 70 mg/dL TSH HGBA1c. DVT PLX
[2020-07-20] MEDS ORDERED: DEXTROSE 5%-WATER - 50 ML IVPB ONE (11:42)
[2020-07-20] MEDS ORDERED: cefTRIAXone SODIUM 1 GM VIAL ONE (11:42)
--- NOTE | 2020-07-20 21:14 | PN ---
Progress Note, Physician History of Present Illness: Slurred speech improved Pt's daughters concerned that pt has had vomiting for the past few months and that this has not been addressed? Pt has been treated for H.pylori as a outpt Spoke w/ nurse who said that there was no episodes of vomiting today - Current Medication List Current Medications: Active Medications Acetaminophen (Tylenol -) 650 mg PO Q6H PRN PRN Reason: PAIN LEVEL 1-6 Last Admin: 07/18/20 21:29 Dose: 650 mg Documented by: Amlodipine Besylate (Norvasc -) 5 mg PO DAILY [facility] Last Admin: 07/20/20 09:58 Dose: 5 mg Documented by: Aspirin (Ecotrin -) 81 mg PO DAILY [facility] Last Admin: 07/20/20 09:58 Dose: 81 mg Documented by: Atorvastatin Calcium (Lipitor -) 40 mg PO HS [facility] Last Admin: 07/19/20 21:33 Dose: 40 mg Documented by: Escitalopram Oxalate (Lexapro -) 5 mg PO DAILY [facility] Last Admin: 07/20/20 09:58 Dose: 5 mg Documented by: Heparin Sodium (Porcine) (Heparin -) 5,000 unit SQ BID [facility] Last Admin: 07/20/20 09:58 Dose: 5,000 unit Documented by: Ceftriaxone Sodium 1 gm/ (Dextrose) 50 mls @ 100 mls/hr IVPB DAILY [facility]; Protocol Last Admin: 07/20/20 11:46 Dose: 100 mls/hr Documented by: Pantoprazole Sodium (Protonix -) 40 mg PO DAILY [facility] Last Admin: 07/20/20 09:58 Dose: 40 mg Documented by: - Objective Vital Signs: Vital Signs Temperature 98.3 F 07/20/20 14:00 Pulse Rate 72 07/20/20 14:00 Respiratory Rate 16 07/20/20 14:00 Blood Pressure 139/84 07/20/20 14:00 O2 Sat by Pulse Oximetry (%) 99 07/20/20 09:00 Neck: Yes: WNL, Supple Cardiovascular: Yes: WNL, Regular Rate and Rhythm Respiratory: Yes: WNL, Regular, CTA Bilaterally Gastrointestinal: Yes: WNL, Normal Bowel Sounds, Soft Labs: CBC, BMP 07/20/20 06:18 07/20/20 06:18 INR, PTT INR 1.03 (0.83-1.09) 07/16/20 21:21 Problem List - Problems (1) Vomiting Assessment/Plan: Cont protonix Check ct scan abd GI consult Code(s): R11.10 - VOMITING, UNSPECIFIED (2) CVA (cerebral vascular accident) Assessment/Plan: Cont asa/lipitor Monitor BP PT Spoke to pt's daughters and they do not want pt to go to [facility] Code(s): I63.9 - CEREBRAL INFARCTION, UNSPECIFIED (3) Dementia Assessment/Plan: RPR positive ID consulted Pt started on IV ceftriaxone Long D/W pt's 2 daughters about (+) RPR and possible diagnosis of syphillis They do not want any further treatment/management/or work up of (+) RPR They were told and understand that a (+) RPR could means syphilis They also want antibiotic stopped IV ceftriaxone was dc'ed Code(s): F03.90 - UNSPECIFIED DEMENTIA WITHOUT BEHAVIORAL DISTURBANCE (4) Hyperlipidemia Code(s): E78.5 - HYPERLIPIDEMIA, UNSPECIFIED Qualifiers: Hyperlipidemia type: unspecified Qualified Code(s): E78.5 - Hyperlipidemia, unspecified (5) Hypertension Code(s): I10 - ESSENTIAL (PRIMARY) HYPERTENSION Qualifiers: Hypertension type: unspecified Qualified Code(s): I10 - Essential (primary) hypertension
[2020-07-20] MEDS: ATORVASTATIN CA 40 MG TABLET (FP) PO SCH (21:45)
[2020-07-21 06:49] LABS: BASO % 0.4 % (0-2.0); EOS % 3.4 % (0-4.5); HEMATOCRIT 35.9 % (32.4-45.2); HEMOGLOBIN 12.2 GM/dL (10.7-15.3); MCH 31.4 pg (25.7-33.7); MEAN CELL VOLUME 92.4 fl (80-96); MEAN PLT VOLUME 9.2 fl (7.5-11.1); MONO % 7.7 % (3.8-10.2); NEUT % 61.5 % (42.8-82.8); PLATELET COUNT 272 K/MM3 (134-434); RBC 3.89 M/mm3 (3.60-5.2); RDW 14.5 % (11.6-15.6); WHITE BLOOD COUNT 6.6 K/mm3 (4.0-10.0)
[2020-07-21 07:15] LABS: ALBUMIN 3.1 g/dl (3.4-5.0); BILIRUBIN,TOTAL 0.6 mg/dL (0.2-1); BLOOD UREA NITROGEN 12.9 mg/dL (7-18); CALCIUM 8.7 mg/dL (8.5-10.1); POTASSIUM 3.9 mmol/L (3.5-5.1); TOT PROT 6.4 g/dl (6.4-8.2)
--- NOTE | 2020-07-21 09:07 | PN ---
Progress Note, Physician History of Present Illness: stable no issues syphilis testing noted rpr is 1 to 1 - Current Medication List Current Medications: Active Medications Acetaminophen (Tylenol -) 650 mg PO Q6H PRN PRN Reason: PAIN LEVEL 1-6 Last Admin: 07/18/20 21:29 Dose: 650 mg Documented by: Amlodipine Besylate (Norvasc -) 5 mg PO DAILY [facility] Last Admin: 07/20/20 09:58 Dose: 5 mg Documented by: Aspirin (Ecotrin -) 81 mg PO DAILY [facility] Last Admin: 07/20/20 09:58 Dose: 81 mg Documented by: Atorvastatin Calcium (Lipitor -) 40 mg PO HS [facility] Last Admin: 07/20/20 21:45 Dose: 40 mg Documented by: Escitalopram Oxalate (Lexapro -) 5 mg PO DAILY [facility] Last Admin: 07/20/20 09:58 Dose: 5 mg Documented by: Heparin Sodium (Porcine) (Heparin -) 5,000 unit SQ BID [facility] Last Admin: 07/20/20 21:45 Dose: 5,000 unit Documented by: Pantoprazole Sodium (Protonix -) 40 mg PO DAILY [facility] Last Admin: 07/20/20 09:58 Dose: 40 mg Documented by: - Objective Vital Signs: Vital Signs Temperature 98.0 F 07/21/20 06:00 Pulse Rate 68 07/21/20 06:00 Respiratory Rate 18 07/21/20 06:00 Blood Pressure 151/63 07/21/20 06:00 O2 Sat by Pulse Oximetry (%) 98 07/20/20 22:00 Constitutional: Yes: No Distress, Calm Cardiovascular: Yes: S1, S2 Respiratory: Yes: Regular, CTA Bilaterally Gastrointestinal: Yes: Normal Bowel Sounds, Soft Musculoskeletal: Yes: WNL Extremities: Yes: Other Neurological: Yes: Alert Labs: CBC, BMP 07/21/20 05:29 07/21/20 05:29 INR, PTT INR 1.03 (0.83-1.09) 07/16/20 21:21 Assessment/Plan Problem List - Problems (1) CVA (cerebral vascular accident) Assessment/Plan: mri noted awaiting neuro consult Code(s): I63.9 - CEREBRAL INFARCTION, UNSPECIFIED (2) Dementia Code(s): F03.90 - UNSPECIFIED DEMENTIA WITHOUT BEHAVIORAL DISTURBANCE (3) Facial droop Code(s): R29.810 - FACIAL WEAKNESS (4) Hyperlipidemia Assessment/Plan: on meds Code(s): E78.5 - HYPERLIPIDEMIA, UNSPECIFIED Qualifiers: Hyperlipidemia type: unspecified Qualified Code(s): E78.5 - Hyperlipidemia, unspecified (5) Hypertension Assessment/Plan: on meds Code(s): I10 - ESSENTIAL (PRIMARY) HYPERTENSION Qualifiers: Hypertension type: unspecified Qualified Code(s): I10 - Essential (primary) hypertension (6) Slurred speech Code(s): R47.81 - SLURRED SPEECH syphilis serology positive Assessment/Plan i think this is an old infection which was probably treated ,patient does not remember anything neuro note noted i am not inclined to treat the patient if patient continues to ahve symptoms then will need lp to be done to check csf vdrl and other tests to try to diagnose it or other way is just to treat her empirically if necessarily,but i think probability is low will discus wiht the team and decide the approach neuro on case
[2020-07-21] MEDS: CEFTRIAXONE 1 GM in DEXTROSE 5%-WATER - 50 ML IVPB SCH (09:41)
[2020-07-21] MEDS: ESCITALOPRAM OXALATE 10 MG TABLET PO SCH (10:12)
[2020-07-21] MEDS: amLODIPine BESYLATE 5 MG TABLET (FP) PO SCH (10:12)
[2020-07-21] MEDS: ASPIRIN COATED 81 MG TABLET.EC PO SCH (10:12)
[2020-07-21] MEDS: HEPARIN NA (PORCINE) 5,000 UNITS/ML 1ML VIAL SQ SCH ×2 (10:13→21:26)
[2020-07-21] MEDS: PANTOPRAZOLE 40 MG TABLET PO SCH (10:13)
--- NOTE | 2020-07-21 15:54 | CON.GI ---
Consult Consult Specialty:: GI - History of Present Illness History of Present Illness: 85yo F with PMH of HTN, GERD, dementia (AAOx3 at baseline), not ambulatory likely secondary to dementia, presents with right facial droop and slurred speech, noticed by daughter at 7pm. Work up revealed Acute infarct, carotid arter aneurysm, diastolic CHF. Patient was asked to be seen because of vomiting. This has resolved and ate [address] Dr Brewer was informed - Past Medical History ...: No - Alcohol/Substance Use Hx Alcohol Use: No - Smoking History Smoking history: Never smoked Have you smoked in the past 12 months: No Home Medications - Allergies Allergies/Adverse Reactions: Allergies Allergy/AdvReac Type Severity Reaction Status Date / Time No Known Allergies Allergy Verified 07/16/20 21:02 - Home Medications Home Medications: Ambulatory Orders Escitalopram Oxalate [Lexapro -] 5 mg PO DAILY 07/16/20 Olmesartan/Hydrochlorothiazide [Olmesartan-Hctz 40-12.5 mg Tab] 1 each PO DAILY 07/16/20 Acetaminophen [Tylenol Arthritis] 650 mg PO DAILY PRN 07/18/20 Aspirin [Ecotrin] 81 mg PO 07/18/20 Cholecalciferol (Vitamin D3) [Vitamin D3 -] 1,000 unit PO DAILY 07/18/20 Ferrous Sulfate [Iron] 325 mg PO 07/18/20 Aspirin Coated [Ecotrin -] 81 mg PO DAILY #30 tablet.ec 07/21/20 Atorvastatin Ca [Lipitor] 40 mg PO HS #30 tablet 07/21/20 Pantoprazole Sodium [Protonix -] 40 mg PO DAILY #30 tablet.ec 07/21/20 Amlodipine Besylate [Norvasc -] 5 mg PO DAILY #30 tablet 07/22/20 Physical Exam-GI Vital Signs: Vital Signs Temperature 98.6 F 07/21/20 14:00 Pulse Rate 78 07/21/20 14:00 Respiratory Rate 18 07/21/20 14:00 Blood Pressure 151/83 07/21/20 14:00 O2 Sat by Pulse Oximetry (%) 100 07/21/20 10:00 Constitutional: Yes: No Distress Eyes: Yes: Conjunctiva Clear HENT: Yes: Atraumatic Neck: Yes: Supple Cardiovascular: Yes: Regular Rate and Rhythm Respiratory: Yes: CTA Bilaterally ...Palpate: Yes: Soft. No: Firm/Rigid, Guarding, Hepatomegaly, Mass, Pulsatile Mass, Splenomegaly, Tenderness Labs: CBC, BMP 07/21/20 05:29 07/21/20 05:29 INR, PTT INR 1.03 (0.83-1.09) 07/16/20 21:21 Problem List - Problems (1) Vomiting Assessment/Plan: resolved R> further work up as necessary continue present management Code(s): R11.10 - VOMITING, UNSPECIFIED
[2020-07-21] MEDS: ATORVASTATIN CA 40 MG TABLET (FP) PO SCH (21:26)
--- NOTE | 2020-07-22 08:12 | PN ---
Progress Note, Physician Chief Complaint: Pt Alert; eating lunch; no complaints. Moves extremities (weakly, especially left side) on request. History of Present Illness: Ms. Huitron is an 85 yr old black woman (. [place]illi[place]) with PMH of HTN, GERD, dementia (AAOx2 at baseline), not ambulatory, ?dementia, obesity, now presents with right facial droop and slurred speech, noticed by daughter at 7pm. Unclear last known well, as son is reported to have noticed her abnormal speech this morning, and the daughter states patient sounded normal last night. Patient had one episode of NBNB emesis prior to arrival in ED. Daughter also reports that patient "passed out" and fell to the floor twice recently, once last month and once last weak. She was reportedly unconscious or minimally arousable for several minutes on the ground. No tongue biting or loss of urine. Denies neck pain. - Current Medication List Current Medications: Active Medications Acetaminophen (Tylenol -) 650 mg PO Q6H PRN PRN Reason: PAIN LEVEL 1-6 Last Admin: 07/18/20 21:29 Dose: 650 mg Documented by: Amlodipine Besylate (Norvasc -) 5 mg PO DAILY [facility] Last Admin: 07/21/20 10:12 Dose: 5 mg Documented by: Aspirin (Ecotrin -) 81 mg PO DAILY [facility] Last Admin: 07/21/20 10:12 Dose: 81 mg Documented by: Atorvastatin Calcium (Lipitor -) 40 mg PO HS [facility] Last Admin: 07/21/20 21:26 Dose: 40 mg Documented by: Escitalopram Oxalate (Lexapro -) 5 mg PO DAILY [facility] Last Admin: 07/21/20 10:12 Dose: 5 mg Documented by: Heparin Sodium (Porcine) (Heparin -) 5,000 unit SQ BID [facility] Last Admin: 07/21/20 21:26 Dose: 5,000 unit Documented by: Ceftriaxone Sodium 1 gm/ (Dextrose) 50 mls @ 100 mls/hr IVPB DAILY [facility]; Protocol Last Admin: 07/21/20 09:41 Dose: Not Given Documented by: Pantoprazole Sodium (Protonix -) 40 mg PO DAILY [facility] Last Admin: 07/21/20 10:13 Dose: 40 mg Documented by: - Objective Vital Signs: Vital Signs Temperature 99.0 F 07/21/20 22:00 Pulse Rate 74 07/21/20 22:00 Respiratory Rate 20 07/21/20 22:00 Blood Pressure 143/73 07/21/20 22:00 O2 Sat by Pulse Oximetry (%) 98 07/21/20 22:00 Constitutional: Yes: No Distress, Obese Eyes: Yes: WNL HENT: Yes: WNL Neck: Yes: Decreased ROM Cardiovascular: Yes: Regular Rate and Rhythm, S1, S2, S4 Respiratory: Yes: Regular Gastrointestinal: Yes: Soft ...Rectal Exam: Yes: Deferred Genitourinary: Yes: Anuria Breast(s): Yes: WNL Musculoskeletal: Yes: Joint Stiffness, Muscle Weakness Extremities: Yes: Cool, Other (decreased ROM, more marked on left side) Edema: No Peripheral Pulses WNL: Yes Integumentary: Yes: WNL Neurological: Yes: Alert, Weakness Psychiatric: Yes: Other Labs: CBC, BMP 07/21/20 05:29 07/21/20 05:29 INR, PTT INR 1.03 (0.83-1.09) 07/16/20 21:21 - ....Imaging Chest X-ray: Image Reviewed EKG: Image Reviewed Assessment/Plan 85yo F with PMH of HTN, GERD, dementia (AAOx3 at baseline), not ambulatory likely secondary to dementia, presents with right facial droop and slurred speech, noticed by daughter at 7pm. 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 On SSRI. On ASA 81 mg daily. EKG: NSR; LVH; f/u today. Start statin; keep LDL cholesterol < 70 mg/dL, and triglycerides <150 mg/dL. TSH WNL (1.58) On antibiotics per PMD/ID; afebrile; WBC WNL. DVT PLX
[2020-07-22] MEDS: ASPIRIN COATED 81 MG TABLET.EC PO SCH (09:16)
[2020-07-22] MEDS: amLODIPine BESYLATE 5 MG TABLET (FP) PO SCH (09:16)
[2020-07-22] MEDS: HEPARIN NA (PORCINE) 5,000 UNITS/ML 1ML VIAL SQ SCH (09:16)
[2020-07-22] MEDS: PANTOPRAZOLE 40 MG TABLET PO SCH (09:16)
[2020-07-22] MEDS: ESCITALOPRAM OXALATE 10 MG TABLET PO SCH (09:16)
--- NOTE | 2020-07-22 09:26 | PN ---
Progress Note, Physician History of Present Illness: 85yo F with PMH of HTN, GERD, dementia (AAOx3 at baseline), not ambulatory likely secondary to dementia, presents with right facial droop and slurred speech, noticed by daughter at 7pm. Unclear last known well, as son is reported to have noticed her abnormal speech this morning, and the daughter states patient sounded normal last night. Patient had one episode of NBNB emesis prior to arrival in ED. Daughter also reports that patient "passed out" and fell to the floor twice recently, once last month and once last weak. She was reportedly unconscious or minimally arousable for several minutes on the ground. No tongue biting or loss of urine. Denies neck pain. - Current Medication List Current Medications: Active Medications Acetaminophen (Tylenol -) 650 mg PO Q6H PRN PRN Reason: PAIN LEVEL 1-6 Last Admin: 07/18/20 21:29 Dose: 650 mg Documented by: Amlodipine Besylate (Norvasc -) 5 mg PO DAILY [facility] Last Admin: 07/22/20 09:16 Dose: 5 mg Documented by: Aspirin (Ecotrin -) 81 mg PO DAILY [facility] Last Admin: 07/22/20 09:16 Dose: 81 mg Documented by: Atorvastatin Calcium (Lipitor -) 40 mg PO HS [facility] Last Admin: 07/21/20 21:26 Dose: 40 mg Documented by: Escitalopram Oxalate (Lexapro -) 5 mg PO DAILY [facility] Last Admin: 07/22/20 09:16 Dose: 5 mg Documented by: Heparin Sodium (Porcine) (Heparin -) 5,000 unit SQ BID [facility] Last Admin: 07/22/20 09:16 Dose: 5,000 unit Documented by: Ceftriaxone Sodium 1 gm/ (Dextrose) 50 mls @ 100 mls/hr IVPB DAILY [facility]; Protocol Last Admin: 07/21/20 09:41 Dose: Not Given Documented by: Pantoprazole Sodium (Protonix -) 40 mg PO DAILY [facility] Last Admin: 07/22/20 09:16 Dose: 40 mg Documented by: - Objective Vital Signs: Vital Signs Temperature 98.3 F 07/22/20 06:00 Pulse Rate 61 07/22/20 06:00 Respiratory Rate 20 07/22/20 06:00 Blood Pressure 131/74 07/22/20 06:00 O2 Sat by Pulse Oximetry (%) 98 07/22/20 06:00 Eyes: Yes: WNL, Conjunctiva Clear, EOM Intact HENT: Yes: WNL, Atraumatic, Normocephalic Neck: Yes: WNL, Supple, Trachea Midline Cardiovascular: Yes: WNL, Regular Rate and Rhythm Respiratory: Yes: WNL, Regular, CTA Bilaterally Gastrointestinal: Yes: WNL, Normal Bowel Sounds Genitourinary: Yes: WNL Musculoskeletal: Yes: WNL Extremities: Yes: WNL Edema: No Integumentary: Yes: WNL Labs: CBC, BMP 07/21/20 05:29 07/21/20 05:29 INR, PTT INR 1.03 (0.83-1.09) 07/16/20 21:21 Problem List - Problems (1) Facial droop Code(s): R29.810 - FACIAL WEAKNESS (2) Hyperlipidemia Code(s): E78.5 - HYPERLIPIDEMIA, UNSPECIFIED Qualifiers: Hyperlipidemia type: unspecified Qualified Code(s): E78.5 - Hyperlipidemia, unspecified (3) Hypertension Code(s): I10 - ESSENTIAL (PRIMARY) HYPERTENSION Qualifiers: Hypertension type: unspecified Qualified Code(s): I10 - Essential (primary) hypertension (4) Slurred speech Code(s): R47.81 - SLURRED SPEECH Assessment/Plan 85yo F with PMH of HTN, GERD, dementia (AAOx3 at baseline), not ambulatory likely secondary to dementia, presents with right facial droop and slurred speech, noticed by daughter at 7pm. 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 On SSRI. On ASA 81 mg daily. EKG: NSR; LVH; f/u today. Start statin; keep LDL cholesterol < 70 mg/dL, and triglycerides <150 mg/dL. TSH WNL (1.58) On antibiotics per PMD/ID; afebrile; WBC WNL. DVT PLX
[2020-07-22] MEDS: CEFTRIAXONE 1 GM in DEXTROSE 5%-WATER - 50 ML IVPB SCH (10:35)
[2020-07-22 10:51] VITALS: BP 143/74; PULSE 62; TEMP 98
--- NOTE | 2020-07-22 12:07 | PN ---
Progress Note, Physician - Objective Vital Signs: Vital Signs Temperature 98 F 07/22/20 10:00 Pulse Rate 62 07/22/20 10:00 Respiratory Rate 20 07/22/20 10:00 Blood Pressure 143/74 07/22/20 10:00 O2 Sat by Pulse Oximetry (%) 96 07/22/20 10:00 Labs: CBC, BMP 07/21/20 05:29 07/21/20 05:29 INR, PTT INR 1.03 (0.83-1.09) 07/16/20 21:21
--- NOTE | 2020-07-22 12:16 | PN ---
Progress Note (short form) - Note Progress Note: NEUROLOGY PROGRESS: Events reviewed and discussed with daughter, Hannah, and Granddaughter, this AM. Patient was reexamined last night. Family confirms history of memory decline and progressive gait dysfunction, requiring walker x few years and unable to navigate stairs > 1 year. In addition, family adds h/o recurrent episodes of LOC (>20) over the last "3 or 4 years." Daughter has found her mother on the floor and notes she "slowly wakes up.' Granddaughter has witnessed the entire episode and notes shaking, LOC, falling and at least 1 episode of incontinence. EXAM: No bruits, no head trauma. Cor reg. NEURO: O x 3. Recalls 1 of 3 at 3. CN II-XII: normal Motor: No drift. Normal strength. Absent AJ's. Coord: No FTN dystaxia Sensory: decreased vibration feet. 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 Doing well s/p right internal capsule lacunar infarct. Probable seizure disorder. SUGGEST: Start levetiracetam 250 mg q 12 hrs. Out patient Neuro f/u and EEG Out Pt P.T. for gait with walker. [facility]. Chair lift for staairs, etc. Thank you very much, Vicente Nicole MD
== END 2020-07-22 11:55 | disposition home health service (06) | DRG 65 ==
LOC: JER 20:53 → JERBED 07-17 00:25 → J4S 07-17 21:25
PROVIDERS: ADMIT Internal Medicine; ATTEND Internal Medicine
DX: I63.89 Other cerebral infarction (principal); I50.32 Chronic diastolic (congestive) heart failure; G40.909 Epilepsy, unspecified, not intractable, without status epilepticus; F03.90 Unspecified dementia, unspecified severity, without behavioral disturbance, psychotic disturbance, mood disturbance, and anxiety; I11.0 Hypertensive heart disease with heart failure; K21.9 Gastro-esophageal reflux disease without esophagitis; E78.5 Hyperlipidemia, unspecified; I69.328 Other speech and language deficits following cerebral infarction; E66.9 Obesity, unspecified; Z68.31 Body mass index [BMI] 31.0-31.9, adult; M85.80 Other specified disorders of bone density and structure, unspecified site; I72.0 Aneurysm of carotid artery; R26.9 Unspecified abnormalities of gait and mobility
CPT/HCPCS: 36415; 70450-TC; 70544-TC; 70547-TC; 70551-TC; 71045-TC-FY; 72125-TC; 74176-TC; 80053; 80061; 81003; 82150; 82550; 82607; 83690; 83721; 84443; 84484; 85025; 85610; 85730; 86593; 86677; 86780; 86850; 86900; 86901; 87077; 87086; 93005; 93010; 93306-TC; 93880-TC; 97116-GP; 97161-GP; 99285-25; J1644; U0003

== ENCOUNTER 2022-10-22 22:01 | Observation (INO) | payer BC, OTHER ==
[2022-10-23 00:47] LABS: BASO % 0.5 % (0-2.0); EOS % 0.2 % (0-4.5); HEMATOCRIT 30.9 % (32.4-45.2); HEMOGLOBIN 10.1 GM/dL (10.7-15.3); LYMPH % 9.2 % (8-40); MCH 30.2 pg (25.7-33.7); MCHC 32.7 g/dl (32.0-36.0); MEAN CELL VOLUME 92.3 fl (80-96); MEAN PLT VOLUME 8.3 fl (7.5-11.1); MONO % 4.8 % (3.8-10.2); NEUT % 85.3 % (42.8-82.8); PLATELET COUNT 210 10^3/uL (134-434); RBC 3.35 M/mm3 (3.60-5.2); RDW 14.6 % (11.6-15.6); WHITE BLOOD COUNT 5.9 K/mm3 (4.0-10.0)
[2022-10-23 00:52] LABS: INR 1.01 (0.83-1.09); PROTHROMBIN TIME (PATIENT) 11.6 SEC (9.7-13.0)
[2022-10-23 01:05] LABS: ALBUMIN 3.4 g/dl (3.4-5.0); CALCIUM 8.9 mg/dL (8.5-10.1)
[2022-10-23 01:06] LABS: BLOOD UREA NITROGEN 13.3 mg/dL (7-18)
[2022-10-23 01:08] LABS: CREATININE 1.3 mg/dL (0.55-1.3)
[2022-10-23 01:10] LABS: BILIRUBIN,TOTAL 0.7 mg/dL (0.2-1); TOT PROT 7.5 g/dl (6.4-8.2)
[2022-10-23 01:16] LABS: ACTIVATED PTT 16.6 SECONDS (25.2-36.5)
[2022-10-23] MEDS ORDERED: AZITHROMYCIN IVPB 500 MG in DEXTROSE 5%-WATER - 250 ML IVPB ONE (02:22)
[2022-10-23] MEDS ORDERED: CEFTRIAXONE 1 GM in DEXTROSE 5%-WATER - 50 ML IVPB ONE (02:22)
[2022-10-23] MEDS ORDERED: CEFTRIAXONE 1 GM/50 ML BAG ONE (02:51)
[2022-10-23] MEDS ORDERED: AZITHROMYCIN IVPB 500 MG/250 ML BAG IVPB ONE (02:52)
[2022-10-23] MEDS ORDERED: PIPERACILLIN/TAZOB 3.375 GM 3.375 GM in DEXTROSE 5%-WATER - 50 ML IVPB ONE (03:04)
[2022-10-23] MEDS ORDERED: PIPERACILLIN/TAZOB 3.375 GM 2.25 GM in DEXTROSE 5%-WATER - 50 ML IVPB ONE (03:08)
[2022-10-23 08:00] LABS: BASO % 0.6 % (0-2.0); EOS % 0.7 % (0-4.5); HEMATOCRIT 37.1 % (32.4-45.2); HEMOGLOBIN 12.5 GM/dL (10.7-15.3); LYMPH % 17.7 % (8-40); MCH 30.6 pg (25.7-33.7); MCHC 33.6 g/dl (32.0-36.0); MEAN CELL VOLUME 90.9 fl (80-96); MEAN PLT VOLUME 8.6 fl (7.5-11.1); MONO % 9.8 % (3.8-10.2); NEUT % 71.2 % (42.8-82.8); PLATELET COUNT 268 10^3/uL (134-434); RBC 4.08 M/mm3 (3.60-5.2); RDW 14.5 % (11.6-15.6)
[2022-10-23 08:21] LABS: BLOOD UREA NITROGEN 12.6 mg/dL (7-18)
[2022-10-23 08:22] LABS: ALBUMIN 3.1 g/dl (3.4-5.0)
[2022-10-23 08:26] LABS: BILIRUBIN,TOTAL 1.1 mg/dL (0.2-1); TOT PROT 6.5 g/dl (6.4-8.2)
[2022-10-23] MEDS ORDERED: PANTOPRAZOLE 40 MG TABLET PO ONE (10:57)
[2022-10-23] MEDS ORDERED: FERROUS SO4 325 MG TABLET (FP) ONE (10:57)
[2022-10-23] MEDS ORDERED: ESCITALOPRAM OXALATE 10 MG TABLET ONE (10:57)
[2022-10-23] MEDS ORDERED: ASPIRIN COATED 81 MG TABLET.EC ONE (10:57)
[2022-10-23] MEDS ORDERED: HEPARIN NA (PORCINE) 5,000 UNITS/ML 1ML VIAL ONE (10:58)
[2022-10-23] MEDS: ASPIRIN COATED 81 MG TABLET.EC PO SCH (10:58)
[2022-10-23] MEDS: HEPARIN NA (PORCINE) 5,000 UNITS/ML 1ML VIAL SQ SCH ×2 (10:59→23:11)
[2022-10-23] MEDS: FERROUS SO4 325 MG TABLET (FP) PO SCH ×2 (10:59→23:10)
[2022-10-23] MEDS: PANTOPRAZOLE 40 MG TABLET PO SCH (10:59)
[2022-10-23] MEDS: ESCITALOPRAM OXALATE 10 MG TABLET PO SCH (10:59)
[2022-10-23] MEDS: amLODIPine BESYLATE 5 MG TABLET (FP) PO SCH (11:17)
[2022-10-23] MEDS: HYDROCHLOROTHIAZIDE 12.5 MG CAPSULE (FP) PO SCH (11:17)
[2022-10-23] MEDS: LOSARTAN POTASSIUM 50 MG TABLET PO SCH (11:17)
[2022-10-23 16:52] VITALS: BMI 25.3
[2022-10-23] MEDS ORDERED: PNEUMOC 20-VAL CONJ-DIP CRM/PF 0.5 ML SYRINGE IM ONE (18:00)
[2022-10-23 18:54] LABS: N-TERMINAL BNP 147.4 pg/ml (5-450)
[2022-10-23] MEDS ORDERED: levETIRAcetam 250 MG TABLET PO SCH (22:00)
[2022-10-23] MEDS: levETIRAcetam 500 MG TABLET (FP) PO SCH (23:10)
[2022-10-23] MEDS: ATORVASTATIN CA 40 MG TABLET (FP) PO SCH (23:10)
[2022-10-23] MEDS: DONEPEZIL HCL 10 MG TABLET (FP) PO SCH (23:26)
[2022-10-24 08:49] LABS: ALBUMIN 3.1 g/dl (3.4-5.0); BLOOD UREA NITROGEN 12.6 mg/dL (7-18); CALCIUM 8.9 mg/dL (8.5-10.1)
[2022-10-24 08:50] LABS: CREATININE 0.9 mg/dL (0.55-1.3)
[2022-10-24 08:52] LABS: BILIRUBIN,TOTAL 0.8 mg/dL (0.2-1); TOT PROT 6.5 g/dl (6.4-8.2)
[2022-10-24] MEDS ORDERED: CEFTRIAXONE 1 GM in DEXTROSE 5%-WATER - 50 ML IVPB SCH (10:00)
[2022-10-24] MEDS ORDERED: AZITHROMYCIN IVPB 250 MG in DEXTROSE 5%-WATER - 250 ML IVPB SCH (10:00)
[2022-10-24] MEDS: ASPIRIN COATED 81 MG TABLET.EC PO SCH (11:34)
[2022-10-24] MEDS: ESCITALOPRAM OXALATE 10 MG TABLET PO SCH (11:34)
[2022-10-24] MEDS: FERROUS SO4 325 MG TABLET (FP) PO SCH ×2 (11:34→21:25)
[2022-10-24] MEDS: levETIRAcetam 500 MG TABLET (FP) PO SCH ×2 (11:34→21:24)
[2022-10-24] MEDS: LOSARTAN POTASSIUM 50 MG TABLET PO SCH (11:34)
[2022-10-24] MEDS: amLODIPine BESYLATE 5 MG TABLET (FP) PO SCH (11:34)
[2022-10-24] MEDS: PANTOPRAZOLE 40 MG TABLET PO SCH (11:34)
[2022-10-24] MEDS: HYDROCHLOROTHIAZIDE 12.5 MG CAPSULE (FP) PO SCH (11:34)
[2022-10-24] MEDS: DONEPEZIL HCL 10 MG TABLET (FP) PO SCH (11:34)
[2022-10-24] MEDS: HEPARIN NA (PORCINE) 5,000 UNITS/ML 1ML VIAL SQ SCH ×2 (11:35→21:25)
[2022-10-24 15:48] LABS: EPI CELLS 4 /uL (0-25.1); HYALINE CASTS 1 /uL (0-3.1); URINE APPEARANCE CLEAR; URINE BACTERIA 2 /uL (0-1359); URINE BILIRUBIN NEGATIVE (NEGATIVE); URINE COLOR YELLOW; URINE GLUCOSE (UA) NEGATIVE (NEGATIVE); URINE KETONE NEGATIVE (NEGATIVE); URINE LEUK ESTERASE TRACE (NEGATIVE); URINE NITRITE NEGATIVE (NEGATIVE); URINE PROTEIN NEGATIVE (NEGATIVE); URINE RBC 4 /uL (0-23.9); URINE WBC 35 /uL (0-25.8)
[2022-10-24] MEDS: ATORVASTATIN CA 40 MG TABLET (FP) PO SCH (21:25)
[2022-10-25 05:34] VITALS: RESP 18
[2022-10-25 07:17] LABS: HEMATOCRIT 37.5 % (32.4-45.2); HEMOGLOBIN 12.7 GM/dL (10.7-15.3); MCH 30.4 pg (25.7-33.7); MCHC 33.7 g/dl (32.0-36.0); MEAN CELL VOLUME 90.1 fl (80-96); PLATELET COUNT 265 10^3/uL (134-434); RBC 4.17 M/mm3 (3.60-5.2); RDW 14.7 % (11.6-15.6); WHITE BLOOD COUNT 6.9 K/mm3 (4.0-10.0)
[2022-10-25 07:59] LABS: CREATININE 1.1 mg/dL (0.55-1.3)
[2022-10-25 08:01] LABS: TOT PROT 6.4 g/dl (6.4-8.2)
[2022-10-25] MEDS ORDERED: MAGNESIUM SULF 50% (8.12 MEQ/2 ML-1 GM VIAL) IVPB ONE (08:15)
[2022-10-25 09:33] LABS: BILIRUBIN,TOTAL 1.1 mg/dL (0.2-1); BLOOD UREA NITROGEN 13.4 mg/dL (7-18); CALCIUM 9.1 mg/dL (8.5-10.1); MAGNESIUM 2.2 mg/dL (1.8-2.4); PHOSPHOROUS 4.7 mg/dL (2.5-4.9)
[2022-10-25 09:51] VITALS: TEMP 97.7
[2022-10-25] MEDS: HEPARIN NA (PORCINE) 5,000 UNITS/ML 1ML VIAL SQ SCH (10:00)
[2022-10-25] MEDS: DONEPEZIL HCL 10 MG TABLET (FP) PO SCH (10:01)
[2022-10-25] MEDS: ESCITALOPRAM OXALATE 10 MG TABLET PO SCH (10:01)
[2022-10-25] MEDS: HYDROCHLOROTHIAZIDE 12.5 MG CAPSULE (FP) PO SCH (10:02)
[2022-10-25] MEDS: levETIRAcetam 500 MG TABLET (FP) PO SCH (10:02)
[2022-10-25] MEDS: ASPIRIN COATED 81 MG TABLET.EC PO SCH (10:03)
[2022-10-25] MEDS: PANTOPRAZOLE 40 MG TABLET PO SCH (10:04)
[2022-10-25] MEDS: FERROUS SO4 325 MG TABLET (FP) PO SCH (10:04)
[2022-10-25] MEDS: LOSARTAN POTASSIUM 50 MG TABLET PO SCH (10:04)
[2022-10-25] MEDS: amLODIPine BESYLATE 5 MG TABLET (FP) PO SCH (10:04)
[2022-10-25 15:16] VITALS: BP 131/53; PULSE 59
[2022-10-26] MEDS ORDERED: amLODIPine BESYLATE 5 MG TABLET (FP) PO SCH (10:00)
[2022-10-26] MEDS ORDERED: DONEPEZIL HCL 10 MG TABLET (FP) PO SCH (18:00)
== END 2022-10-25 17:05 | disposition home or self-care (01) ==
LOC: JER 22:01 → JERBED 10-23 02:17 → INTOOBSV 10-23 02:17 → UNDOADMOB 10-23 02:17 → JERBED 10-23 15:15 → J4W 10-23 15:15 → JERBED 10-24 11:22
PROVIDERS: ADMIT Internal Medicine; ATTEND Nurse Practitioner Family
PROC: 3E03329 Introduction of Other Anti-infective into Peripheral Vein, Percutaneous Approach (ICD-10-PCS; principal; 2022-10-24)
PROC: 3E023GC Introduction of Other Therapeutic Substance into Muscle, Percutaneous Approach (ICD-10-PCS; 2022-10-24)
PROC: 3E0234Z Introduction of Serum, Toxoid and Vaccine into Muscle, Percutaneous Approach (ICD-10-PCS; 2022-10-24)
DX: J18.9 Pneumonia, unspecified organism (principal); J98.11 Atelectasis; F03.90 Unspecified dementia, unspecified severity, without behavioral disturbance, psychotic disturbance, mood disturbance, and anxiety; E78.5 Hyperlipidemia, unspecified; I10 Essential (primary) hypertension; R56.9 Unspecified convulsions; M25.561 Pain in right knee; R55 Syncope and collapse; R11.0 Nausea; Z23 Encounter for immunization
CPT/HCPCS: 0241U-QW; 36415; 70450-TC; 71045-TC-FY; 72125-TC; 72170-TC-FY; 73521-TC-FY; 73564-TC-RT-FY; 80053; 80061; 80177; 81003; 83036; 83735; 83880; 84100; 84443; 84484; 85025; 85027; 85610; 85730; 86593; 86780; 87086; 90677; 93005; 93010; 93306-TC; 93880-TC; 95816; 96365; 96368; 96372; 97116-GP; 97161-GP; 99285-25; G0378; J1644